=== PATIENT | female | born 1995 | race Caucasian/White ===

== ENCOUNTER 2018-09-28 08:49 | Inpatient (IN) | payer MEDICAID ==
[2018-09-28] MEDS ORDERED: BUTORPHANOL 2 MG INJ IV (09:00)
[2018-09-28] MEDS ORDERED: AMPICILLIN 2 GM/NS (PMX) 100 ML IV (09:00)
[2018-09-28] MEDS ORDERED: LIDOCAINE 1% (MPF) 30 ML INJ INJ (09:00)
[2018-09-28] MEDS ORDERED: MISOPROSTOL 200 MCG TAB PR ×2 (09:00→11:00)
[2018-09-28] MEDS ORDERED: CARBOPROST 250 MCG INJ IM ×2 (09:00→11:00)
[2018-09-28] MEDS ORDERED: OXYTOCIN 30 UNITS/LR 500 ML IV (09:00)
[2018-09-28] MEDS: LACTATED RINGER'S 1,000 ML IV (09:09)
[2018-09-28] MEDS: METHYLERGONOVINE 0.2 MG INJ IM (09:10)
[2018-09-28] MEDS: OXYTOCIN 30 UNITS/LR 500 ML IV ×3 (09:10→14:23)
[2018-09-28 09:28] LABS: ADD MAN DIFF? NO
[2018-09-28] MEDS: IBUPROFEN 600 MG TAB PO ×4 (09:35→23:52)
[2018-09-28 09:46] LABS: WHITE BLOOD COUNT 14.1 10^3/ul (4.8-10.8)
[2018-09-28 09:46] LABS: BASOPHIL # 0.1 10^3/ul (0.0-0.1); BASOPHILS % 0.6 % (0.0-2.0); EOSINOPHILS % 0.1 % (0.0-7.0); HEMATOCRIT 37.9 % (37.0-47.0); HEMOGLOBIN 12.2 g/dl (12.0-16.0); LYMPHOCYTES # 2.6 10^3/ul (0.8-2.9); LYMPHOCYTES % 18.5 % (15.0-51.0); MEAN CORPUSCULAR HEMOGLOBIN 27.7 pg (29.0-33.0); MEAN CORPUSCULAR HGB CONC 32.2 g/dl (32.0-37.0); MEAN CORPUSCULAR VOLUME 86.1 fl (82.0-101.0); MEAN PLATELET VOLUME 11.7 fl (7.4-10.4); MONOCYTE # 0.6 10^3/ul (0.3-0.9); MONOCYTES % 3.9 % (0.0-11.0); NEUTROPHIL # 10.8 10^3/ul (1.6-7.5); NEUTROPHILS % 76.5 % (39.0-77.0); PLATELET COUNT 302 10^3/UL (140-415); RED CELL DISTRIBUTION WIDTH 13.7 % (11.5-14.5)
[2018-09-28 09:57] LABS: INR 0.85; PARTIAL THROMBOPLASTIN TIME 24.9 Sec (23.0-35.0); PROTIME 11.7 Sec (11.9-14.9); PT RATIO 0.9
[2018-09-28] MEDS: ACETAMINOPHEN 500 MG TAB PO (10:40)
[2018-09-28] MEDS: KETOROLAC 30 MG INJ IV (10:40)
[2018-09-28] MEDS: LACTATED RINGER'S 1,000 ML IV* (10:44)
[2018-09-28] MEDS ORDERED: METHYLERGONOVINE 0.2 MG INJ IM (11:00)
[2018-09-28] MEDS ORDERED: HYDROCODONE/APAP (5/325) TAB PO ×2 (11:00)
[2018-09-28] MEDS ORDERED: ZOLPIDEM 5 MG TAB PO (11:00)
[2018-09-28] MEDS ORDERED: DIBUCAINE 1% 30 GM OINT TOP (11:00)
[2018-09-28] MEDS: BENZOCAINE 20% 56 ML SPRAY TOP (12:25)
[2018-09-28] MEDS: LANOLIN HPA 1 PKT TOP (12:25)
[2018-09-28] MEDS: WITCH HAZEL/GLYCERIN PAD PR (12:25)
[2018-09-28] MEDS ORDERED: AMPICILLIN 1 GM/NS (PMX) 50 ML IV (13:00)
[2018-09-28 13:24] LABS: HEPATITIS B SURFACE ANTIGEN NEGATIVE (NEGATIVE)
[2018-09-28 18:55] LABS: RAPID PLASMA REAGIN NONREACTIVE (NR)
[2018-09-28] MEDS: MAGNESIUM HYDROXIDE 30ML CUP PO (21:00)
[2018-09-28] MEDS: SENNA/DOCUSATE NA (8.6MG/50MG) TAB PO (23:52)
[2018-09-29] MEDS: LACTATED RINGER'S 1,000 ML IV* (01:10)
[2018-09-29] MEDS: IBUPROFEN 600 MG TAB PO ×4 (05:54→23:59)
[2018-09-29 08:56] LABS: ADD MAN DIFF? NO
[2018-09-29 09:00] LABS: BASOPHILS % 0.3 % (0.0-2.0); EOSINOPHILS % 0.3 % (0.0-7.0); HEMATOCRIT 30.8 % (37.0-47.0); HEMOGLOBIN 10.1 g/dl (12.0-16.0); LYMPHOCYTES % 19.5 % (15.0-51.0); MEAN CORPUSCULAR HEMOGLOBIN 27.8 pg (29.0-33.0); MEAN CORPUSCULAR HGB CONC 32.8 g/dl (32.0-37.0); MEAN CORPUSCULAR VOLUME 84.8 fl (82.0-101.0); MEAN PLATELET VOLUME 11.6 fl (7.4-10.4); MONOCYTE # 0.5 10^3/ul (0.3-0.9); MONOCYTES % 4.5 % (0.0-11.0); NEUTROPHIL # 7.5 10^3/ul (1.6-7.5); PLATELET COUNT 236 10^3/UL (140-415); RED BLOOD COUNT 3.63 10^6/ul (4.20-5.40); RED CELL DISTRIBUTION WIDTH 13.9 % (11.5-14.5)
[2018-09-29] MEDS: SENNA/DOCUSATE NA (8.6MG/50MG) TAB PO ×2 (09:46→21:00)
[2018-09-29] MEDS: MAGNESIUM HYDROXIDE 30ML CUP PO ×2 (09:46→21:00)
[2018-09-30] MEDS: IBUPROFEN 600 MG TAB PO ×2 (05:37→11:29)
[2018-09-30] MEDS: SENNA/DOCUSATE NA (8.6MG/50MG) TAB PO (08:29)
[2018-09-30] MEDS: MAGNESIUM HYDROXIDE 30ML CUP PO (08:29)
[2018-09-30] MEDS: DIPHTH/TET/ACEL PERTUSS (ADULT) 0.5 ML VIAL IM* (09:00)
[2018-09-30] MEDS: MEASLES,MUMPS,RUBELLA VACCINE INJ SC* (09:00)
[2018-09-30] MEDS: VARICELLA VACCINE LIVE/PF 1,350 UNIT/0.5 ML ML SC* (09:00)
== END 2018-09-30 14:10 | disposition home or self-care (01) | DRG 807 ==
LOC: OBT 08:49 → L-D 08:51 → OBT 08:52 → L-D 08:53 → PP1 10:40
PROVIDERS: Obstetrics & Gynecology
PROC: 10E0XZZ Delivery of Products of Conception, External Approach (ICD-10-PCS; principal; 2018-09-28)
PROC: 0W8NXZZ Division of Female Perineum, External Approach (ICD-10-PCS; 2018-09-28)
DX: O80 Encounter for full-term uncomplicated delivery (principal); Z37.0 Single live birth; Z3A.39 39 weeks gestation of pregnancy
CPT/HCPCS: 85025; 85610; 85730; 86592; 86850; 86900; 86901; 87340; 90716